=== PATIENT | male | born 2000 | race Caucasian/White ===

== ENCOUNTER 2023-07-05 08:13 | Inpatient (IN) ==
--- NOTE | 2023-07-05 08:43 | Emergency Department Note ---
Impression & Plan Overdose ADMIT ED Provider Note HPI: History obtained from patient. The patient is a 22-year-old male who presents emergency department after suicide attempt. Patient states that at 7:30 AM today he took 5 separate 300 mg tablets of Wellbutrin in an attempt to kill himself. Patient states he then stopped and told his roommate who brought him to the ER to be assessed. Patient states he does have a history of bipolar disorder with some underlying depression. Patient states that he has previously been admitted for inpatient psychiatric care. On arrival here to the ED the patient is calm and cooperative, he is tachycardic on arrival but otherwise hemodynamically stable. Patient presents voluntarily. He is alert and oriented x3 on arrival, denies any physical complaints. ROS: - Per HPI *Outpatient medications and allergy history reviewed. PE: General: Alert HEENT: Normocephalic, trachea midline Eyes: Extraocular eye movement is intact, no scleral erythema Pulmonary: Clear to auscultation bilaterally, no wheezing Cardio: Regular rate and rhythm GI: Abdomen is soft to palpation : No suprapubic tenderness MSK: No evidence of trauma or malformation of the extremities, no edema Skin: No evidence of rash Neuro: Alert, no focal deficits Psychiatric: Cooperative INDEPENDENT INTERPRETATIONS: awake overnight monitor: (As interpreted by myself): - An order was placed for continuous cardiac monitoring - Patient was noted to be in sinus rhythm with a rate of 95 EKG: (As interpreted by myself): Rate: 98 Rhythm: Normal sinus rhythm Intervals: Within normal limits ST changes: No ST elevation Time: 0843 Interventions provided in ED: -IV fluid bolus Medical Decision Making: Patient presented to the emergency department after overdosing on Wellbutrin. Patient reports that he took 1.5 g of Wellbutrin all at once at 7:30 AM. On arrival here to the ED the patient is alert and oriented, he is in no acute distress. IV was established lab work obtained, I did establish contact with poison control center, case was discussed, given that the patient took extended release Wellbutrin he is not considered medically cleared until at least 12 hours. He is at risk for seizing. EKG reviewed by myself does not show any evidence of interval prolongation or arrhythmia. Recommendations made by poison control for observation and benzodiazepines as needed for any seizure-like activity. Lab work shows no leukocytosis, hemoglobin is normal, platelet count is normal, CMP does not show any critical findings, urinalysis does not show any evidence of infection, Tylenol and salicylate levels are negative. Urine drug screen is otherwise negative, alcohol level is negative. Given prolonged time for medical clearance and risk of seizure, patient will be admitted to the medicine service with plan for psychiatric consultation. Patient is voluntary for inpatient assessment at this time. Case was discussed with the on-call midlevel provider for [facility] provider group, Juanjose Crabtree PA-C, and the patient was placed for admission in stable condition. Consultants/Discussions held with other healthcare providers: -Poison Control Center -Hospitalist service [facility], Service of Dr. Koo Disposition discussion held by myself with: -Patient Diagnosis: 1. Intentional drug overdose, acute 2. Wellbutrin overdose with high risk of seizure, acute 3. Suicide attempt, acute Disposition: Admission Ray Wesley DO Emergency Medicine Past Med/Surg History Surgical History History of tonsillectomy History of wisdom tooth extraction Family History Denies family history of Ovarian cancer Prostate cancer Myocardial infarction Breast cancer Colorectal cancer Social History Smoking Status: Current some day smoker Tobacco Type: E-cigarettes / Vaping Second Hand Exposure: No; Do You Dip or Chew Tobacco: No; Hx Alcohol Use: Yes Hx Substance Use: No Preferred Language: Maldivian Communication Ability: Effective Can Coverer Required: No marital status: Single Current Living Situation: Other Current Living Situation Comment: lives with roommates current occupational status: employed current occupation: banker How many Children do You have: 0 Feels Safe at Home: Yes Childhood Exposure to Second-Hand Smoke: No Diet: regular caffeine: Yes Dental Care, Regularly: Yes Physical Activity Frequency: 1-2 Times per Week Seatbelt Use: always Sunscreen Use: Yes (sometimes) Allergies Allergies Allergy/AdvReac Type Severity Reaction Status Date / Time No Known Allergies Allergy Verified 05/25/23 12:53 Home Meds Previous Rx's Medication Instructions Recorded aripiprazole 5 mg tablet 2.5 mg (1/2 x 5 mg) PO DAILY 05/25/23 bipolar disorder #45 tabs bupropion HCl 300 mg 24 hr tablet, 300 mg PO QAM #90 tabs 05/25/23 extended release Results & Data (ED) Vital Signs Vital Signs - 24 hr 07/05/23 08:24 07/05/23 09:29 07/05/23 09:30 Temperature 36.9 C Temperature Source Temporal Artery Scan Pulse Rate 117 H 105 H Pulse Rate [Apical] Pulse Rhythm Regular Respiratory Rate 20 Respiratory Effort / Characteristics Non-Labored Spontaneous Respiratory Depth Normal Respiratory Pattern Regular Blood Pressure 160/91 H Blood Pressure [Right Arm] Blood Pressure Mean 114 Blood Pressure Mean [Right Arm] Blood Pressure Position Sitting Blood Pressure Position [Right Arm] Pulse Oximetry 98 96 Oxygen Delivery Method Room Air Room Air Sepsis Recent Fever Within 48 Hours No Sepsis New/Unexplained Change in Mental Status No Sepsis Action Taken by Nursing No Action Required 07/05/23 09:30 07/05/23 11:11 Temperature Temperature Source Pulse Rate Pulse Rate [Apical] 94 H 106 H Pulse Rhythm Respiratory Rate 18 18 Respiratory Effort / Characteristics Non-Labored Spontaneous Non-Labored Spontaneous Respiratory Depth Normal Normal Respiratory Pattern Blood Pressure Blood Pressure [Right Arm] 141/96 H 124/89 Blood Pressure Mean Blood Pressure Mean [Right Arm] 111 100 Blood Pressure Position Blood Pressure Position [Right Arm] Sitting Sitting Pulse Oximetry 97 100 Oxygen Delivery Method Room Air Room Air Sepsis Recent Fever Within 48 Hours Sepsis New/Unexplained Change in Mental Status Sepsis Action Taken by Nursing Laboratory Data 07/05/23 09:00 07/05/23 09:00 Lab Results 07/05/23 Range/Units 09:00 WBC 6.54 (4.8-10.8) K/ul RBC 5.38 (4.70-6.10) M/uL Hgb 16.8 (14.0-18.0) g/dl Hct 44.7 (42.0-52.0) % MCV 83.1 (80.0-100.0) fL MCH 31.2 (25.0-34.0) pg MCHC 37.6 H (32.0-36.0) g/dL RDW Std Deviation 36.0 L (36.4-46.3) fL RDW Coeff of Hola 12.0 (11.5-14.5) % Plt Count 285 (130-400) K/uL MPV 8.9 L (9.4-12.4) fL Immature Gran % (Auto) 0.6 % Neut % (Auto) 57.0 % Lymph % (Auto) 31.5 % [place] % (Auto) 8.0 % Eos % (Auto) 2.1 % Baso % (Auto) 0.8 % Neut # (Auto) 3.73 (1.40-6.50) K/uL Lymph # (Auto) 2.06 (1.20-3.40) K/uL [place] # (Auto) 0.52 (0.11-0.59) K/uL Eos # (Auto) 0.14 (0.00-0.50) K/uL Baso # (Auto) 0.05 (0.00-0.20) K/uL Immature Gran # (Auto) 0.04 (0.01-0.20) K/uL Sodium 136 (136-145) mmol/L Potassium 4.0 (3.5-5.1) mmol/L Chloride 102 (98-107) mmol/L Carbon Dioxide 24 (21-32) mmol/L Anion Gap 10 (3-11) BUN 11 (6-23) mg/dl Creatinine 0.76 (0.6-1.4) mg/dl Est Cr Clr Drug Dosing 190.5 ml/min Est GFR ( Amer) > 150.0 ml/min Est GFR (Non-Af Amer) 129.5 ml/min BUN/Creatinine Ratio 14.5 (10-20) Glucose 94 (70-99(Fasting)) mg/dl Calcium 9.8 (8.6-10.3) mg/dl Total Bilirubin 0.8 (0.2-1.0) mg/dl AST 37 (13-39) U/L ALT 94 H (7-52) U/L Alkaline Phosphatase 52 (34-104) U/L Total Protein 7.8 (6.0-8.3) gm/dl Albumin 4.8 (3.4-5.0) gm/dl Globulin 3.0 (2.5-4.0) gm/dl Albumin/Globulin Ratio 1.6 (0.9-2) TSH 1.729 (0.300-4.500) uIu/ml Urine Color Yellow Urine Appearance Clear (Clear) Urine pH 6.0 (4.5-7.5) Ur Specific [place] 1.009 (1.000-1.030) Urine Protein Trace H (Negative) Urine Glucose (UA) Negative (Negative) Urine Ketones Negative (Negative) Urine Blood Negative (Negative) Urine Nitrite Negative (Negative) Urine Bilirubin Negative (Negative) Urine Urobilinogen Negative (Negative) Ur Leukocyte Esterase Negative (Negative) Urine WBC (Auto) 0 (0-5) /hpf Urine RBC (Auto) 0-4 (0-4) /hpf U Hyaline Cast (Auto) 0 (0-5) /lpf U Epithel Cells (Auto) 0-5 (0-5) /lpf Urine Bacteria (Auto) Negative (Negative) Salicylates < 3.0 L (3.0-30) mg/dl Urine Opiates Screen Neg (Neg) Ur Methadone, Qual Neg (Neg) Acetaminophen < 3 L (10-30) ug/ml Urine Barbiturates Neg (Neg) Ur Phencyclidine (PCP) Neg (Neg) U Amphetamin/Meth Scrn Neg (Neg) MDMA (Ecstasy) Screen Neg (Neg) U Benzodiazepines Scrn Neg (Neg) Ur Cocaine Metabolite Neg (Neg) U Marijuana (THC) Screen Neg (Neg) Ethyl Alcohol mg/dL < 10.0 (<10.0) mg/dl Administered Medications Discontinued Medications Sodium Chloride (Nss) 1,000 mls @ 999 mls/hr IV .Q1H1M IAN Stop: 07/05/23 09:47 Last Infusion: 07/05/23 10:26 Dose: Infused Documented By: Admin: 07/05/23 09:07 Dose: 999 mls/hr Documented By: CC Discharge Plan Visit Data Chief Complaint: Overdose (Intentional) Stated Complaint: OVERDOSE INTENTIONAL ED Provider: Ray Wesley Discharge Problem: Overdose Forms Stand Alone Forms: My [facility], Suicide Prevention Resources Prescriptions Prescriptions: No Action bupropion HCl 300 mg tablet extended release 24 hr 300 mg PO QAM Qty: 90 2RF aripiprazole 5 mg tablet 2.5 mg PO DAILY Qty: 45 2RF Referrals Referrals: Cornelia Mcbride CRNP [Primary Care Provider] - Discharge Problem: Overdose Qualifiers: Encounter type: initial encounter Injury intent: intentional self-harm Q ualified Code(s): T50.902A - Poisoning by unspecified drugs, medicaments and biological substances, intentional self-harm, initial encounter
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
--- OUTSIDE RECORDS SUMMARY | 2023-07-05 08:43 | External Medical Summary | Summary of Care ---
Author Name Unknown Organization [facility] Address [address] [place] [address] Phone [phone] Care Team Providers Care Insurance Appraiser Name Role Phone Tea Rowland MD Primary Care Provider [phone] Encounter Details Date Type Department Care Team Description 03/25/2023 Telephone Psychiatry [place] [address] [place] [address] Dru Woods MD [address] [place] [address] Allergies Active Allergy Reactions Severity Noted Date Comments Pollen 12/09/2021 documented as of this encounter (statuses as of 03/25/2023) Medications Medication Sig Dispensed Refills Start Date End Date Status Fluticasone Propionate 50 MCG/ACT Nasal Suspension (Flonase)Indication s:Acute maxillary sinusitis, recurrence not specified Administer into nostril 1 [place] in the morning. 16 g 0 05/07/2022 Active Sertraline HCl 100 MG Oral Tablet (Zoloft) Take 1 tablet by mouth daily 90 Tablet 1 12/11/2022 Active documented as of this encounter (statuses as of 03/25/2023) Active Problems Problem Noted Date MDD (major depressive disorder), recurre nt episode 04/20/2022 NOREEN (generalized anxiety disorder) 04/20 Migraine with aura and without status mi grainosus, not intractable 08/25/2021 Elevated blood pressure reading without diagnosis of hypertension 08/25/2021 History of 2019 novel coronavirus diseas e (COVID-19) 08/13/2021 Overview: Tested Positive 07/23/21 Anxiety and depression 06/24/2021 documented as of this encounter (statuses as of 03/25/2023) Immunizations Name Administration Dates Next Due COVID-19 mRNA, LNP-s, No Pre serve, 2-Dose Series (Pfizer) 09/08/2021,11/24/2020,11/02/2020 Hepatitis B, 0-19 yrs 04/20/2001,2000,08/02 IPV - Polio Virus Vaccine (Inact) 2004,02/23/2001,2000,10/26 MMR - Measles/Mumps/Rubella Vaccine 02/25/2005,0 10/26/2001 Meningococcal Conjugate Vacc ine (Menactra/Menveo) 03/18/2018,10/12/2013 Seasonal Influenza, Quadriva lent, No Preserve, IM 04/21/2022 TDAP (age 11 and older)(Adacel) 04/14/2012 Varicella Vaccine (Chicken Pox) 03/26/2009,10/26 documented as of this encounter Social History Tobacco Use Types Packs/Day Years Used Date Smoking Tobacco: Never Smokeless Tobacco: Never Alcohol Use Standard Drinks/Week Comments Yes 0 (1 standard drink = 0.6 oz pur e alcohol) Rare Sex Assigned at Date Recorded Male 04/09/2021 11:29 AM EDT Job Start Date Occupation Industry Not on file Not on file Not on file documented as of this encounter Miscellaneous Notes * Telephone Encounter - Dru Woods MD - 03/25/2023 1:55 PM EDT psych record request Dru Woods Jaime L. ThanksBo. I believe these should be the dates of a selection of records in [place] to send - 05/08/21 05/29/21 10/09/21 05/13/22 07/15/22 11/19/22 12/10/22 Thanks, Dru Woods MD -[facility] [phone] -[facility] [phone] "Everything will be all right in the end.?If it's not all right, then it isn't the end."?~ Author Unknown Please remember that email is not confidential and may not always be read in a timely fashion. Thisis especially important in an emergency. If you more urgent attention or need to communicate about matters other than scheduling, please use the phone numbers above to contact us. Carlos Beltran, Dru montgomery, Dr. Woods! [facility] has received the attached FLORENTINO and Record Request for a recent [employer] Grad. Do you want to take a quick look at his file and tell me what you would like to send. Thanks! Carlos Beltran she/her Warp Preparer [facility] [phone], Option 1 for my desk [phone], Option 2 for student mental health emergencies and teletherapy services with [facility] BE IMPOSSIBLE TO IGNORE.? documented in this encounter Plan of Treatment Health Maintenance Due Date Last Done Comments GARDASIL-HPV IMMUNIZATION SERIES (1 - Male 2-dose series) 2011 Depression Screening, Annual for Pts 12 and Over 2012 HIV Screening 2015 Hepatitis C Screening 2018 COVID-19 Vaccine (4 - Pfizer series) 11/03/2021 09/08/2021, 11/24/2020, 11/02/2020 DTaP,Tdap,and Td Vaccines (2 - Td or Tdap) 04/14/2022 04/14/2012 Influenza Vaccine (FLU shot) (#1) 2023 04/21/2022, 06/18/2021 Hepatitis B Completed 04/20/2001, 2000, 2000 MENINGOCOCCAL (MENACTRA/MENVEO) Completed 03/18/2018, 10/12/2013 Pneumococcal Vaccine: Pediatrics (0 to 5 Years) and At-Risk Patients (6 to 64 Years) Aged Out No longer eligible b ased on patient's age to complete this topic documented as of this encounter Medical Devices Not on filedocumented as of this encounter Advance Directives Latest Code Status on File Code Status Date Activated Date Inactivated Comments Full Code 04/16/2022 8:10 PM 04/20/2022 3:53 PM This order reflects the patients wishes and were consensually agreed upon. Question Answer Comments Discussion of Advance Directives occurred with: Not Discussed due to patient's condition Care Teams Insurance Appraiser Relationship Specialty Start Date End Date Tea Rowland MD [address] [place] [address] [place] [id number] PCP - General Internal Medicine 11/11/20 documented as of this encounter
[2023-07-05] MEDS ORDERED: SODIUM CHLORIDE 0.9% 1,000 ML IV SCH (08:47)
[2023-07-05 09:27] LABS: Appearance Urine Clear (Clear); Bacteria Urine Automated Negative (Negative); Bilirubin Urine Negative (Negative); Blood Urine Negative (Negative); Cast Urine Automated 0 /lpf (0-5); Color Urine Yellow; Epithelial Cell Urine Auto 0-5 /lpf (0-5); Glucose Urine UA Negative (Negative); Ketones Urine Negative (Negative); Leukocyte Esterase Urine Negative (Negative); Nitrite Urine Negative (Negative); Protein Urine Trace (Negative); RBC Urine Automated 0-4 /hpf (0-4); Specific Gravity Urine 1.009 (1.000-1.030); Urobilinogen Urine Negative (Negative); WBC Urine Automated 0 /hpf (0-5)
[2023-07-05 09:37] LABS: Basophils # (auto) 0.05 K/uL (0.00-0.20); Basophils % (auto) 0.8 %; Eosinophils # (auto) 0.14 K/uL (0.00-0.50); Eosinophils % (auto) 2.1 %; Hematocrit (blood only) 44.7 % (42.0-52.0); Hemoglobin 16.8 g/dl (14.0-18.0); Immature Granulocytes # (auto) 0.04 K/uL (0.01-0.20); Immature Granulocytes % (auto) 0.6 %; Lymphocytes # (auto) 2.06 K/uL (1.20-3.40); Lymphocytes % (auto) 31.5 %; Mean Corpuscular Hemoglobin 31.2 pg (25.0-34.0); Mean Corpuscular Hgb Conc 37.6 g/dL (32.0-36.0); Mean Corpuscular Volume 83.1 fL (80.0-100.0); Mean Platelet Volume 8.9 fL (9.4-12.4); Monocytes # (auto) 0.52 K/uL (0.11-0.59); Neutrophils # (auto) 3.73 K/uL (1.40-6.50); Platelet Count 285 K/uL (130-400); Red Blood Count 5.38 M/uL (4.70-6.10); White Blood Count 6.54 K/ul (4.8-10.8)
[2023-07-05 09:51] LABS: Amphetamines+Metham, Urine Neg (Neg); Barbiturates, Urine Neg (Neg); Benzodiazepine, Urine Neg (Neg); Cocaine, Urine Neg (Neg); MDMA (Ecstacy), Urine Neg (Neg); Marijuana, Urine Neg (Neg); Methadone, Urine Neg (Neg); Opiate, Urine Neg (Neg); Phencyclidine, Urine Neg (Neg)
[2023-07-05 10:00] LABS: Acetaminophen < 3 ug/ml (10-30); Salicylate < 3.0 mg/dl (3.0-30)
[2023-07-05 10:05] LABS: Alanine Aminotransferase 94 U/L (7-52); Albumin Globulin Ratio 1.6 (0.9-2); Albumin Level 4.8 gm/dl (3.4-5.0); Alkaline Phosphatase 52 U/L (34-104); Anion Gap 10 (3-11); Aspartate Aminotransferase 37 U/L (13-39); BUN Creatinine Ratio 14.5 (10-20); Bilirubin,Total 0.8 mg/dl (0.2-1.0); Blood Urea Nitrogen 11 mg/dl (6-23); Calcium 9.8 mg/dl (8.6-10.3); Carbon Dioxide 24 mmol/L (21-32); Chloride 102 mmol/L (98-107); Creatinine Clr Calc Pharmacy 190.5 ml/min; Est GFR (African American) > 150.0 ml/min; Est GFR (Non-African American) 129.5 ml/min; Glucose 94 mg/dl (70-99(Fasting)); Sodium 136 mmol/L (136-145); Total Protein 7.8 gm/dl (6.0-8.3)
[2023-07-05 10:19] LABS: Thyroid Stimulating Hormone 1.729 uIu/ml (0.300-4.500)
--- NOTE | 2023-07-05 10:20 | History & Physical Report ---
Date of Service July 05, 2023 Assessment & Plan (1) Drug overdose, intentional: Plan: Suicide attempt; patient took 1.5 g of Wellbutrin at 0730 on 07/05 Hx of prior inpatient psych treatment x 2, with the last being January 2023 due to depression/SI; this is his first official attempt Tox screen negative for acetaminophen, salicylates, alcohol Patient denies any other ingestions and is A&Ox3 at time of admission Electrolytes WNL EKG revealed NSR at 98 bpm; QTc 413 Repeat EKG planned at q6h to recheck QTc Per poison control, plan is to monitor for seizure precautions for at least 12h Continuous telemetry monitoring Lorazepam 2 mg IV q5m x 2 max doses as needed for seizure activity lasting >3min Patient denies hx of seizures Psych consulted 1:1 observation for now Safe tray A.m. CBC, BMP (2) Bipolar 2 disorder: Plan: Hold aripiprazole (3) Depression: Plan: Hold bupropion (4) Anxiety: Plan: Hold bupropion Plan Disposition: Admit to PCU telemetry Full code Regular diet, safe tray VTE PPx: Will defer for now History of Present Illness Chief Complaint: Overdose (intentional) Primary Care Provider: PATTIE Morin Dwight is a 22-year-old male with PMH of anxiety, depression, and bipolar disorder type 2. He presented for a suicide attempt after taking 1.5 g of Wellbutrin the morning of 07/05 at 0730. The patient reports this was his first suicide attempt, which was triggered by ongoing feelings of depression. He endorses ongoing depression since his last inpatient hospital stay in January 2023 at [facility]. Hx of 2 inpatient psychiatric stays for depression and suicidal ideation (the first was at [facility] in May 2022; second was at [facility] in January 2023). Patient reports he would prefer outpatient psych if possible. He denies any other ingestions the morning of 07/05, cutting, or HI. He further denies alcohol use, tobacco use, or recreational drug use. He endorses vaping. Patient recently moved to [place] in March 2023 for a new job, and he currently lives with his roommate (Андрей) who is at the bedside at time of admission. He denies a history of seizures. He reports he has no access to firearms at home. He denies any recent head trauma or injuries. He did not take his aripiprazole this morning, and reports that he does not take it regularly due to unwanted side effects of sedation. Mild tachycardia at 106 bpm at time of admission; vitals otherwise stable. ED course: NSS 1000mL ROS: Patient endorses dizziness, lightheadedness, nausea, abdominal cramping, chest palpitations the morning of 07/05 (which have resolved). Patient denies fever, confusion, headache, chest pain, SOB, vomiting, diarrhea, constipation, urinary s/s, or numbness or tingling down the arms/legs. Allergies Allergy/AdvReac Type Severity Reaction Status Date / Time No Known Allergies Allergy Verified 05/25/23 12:53 Home Medications Medication Instructions Recorded Confirmed Type aripiprazole 5 mg tablet 2.5 mg (1/2 x 5 mg) PO DAILY 05/25/23 07/05/23 Rx bipolar disorder #45 tabs bupropion HCl 300 mg 24 hr tablet, 300 mg PO QAM #90 tabs 05/25/23 07/05/23 Rx extended release Past Med/Surg History Surgical History History of tonsillectomy History of wisdom tooth extraction Family History Denies family history of Ovarian cancer Prostate cancer Myocardial infarction Breast cancer Colorectal cancer Social History Smoking Status: Current some day smoker Tobacco Type: E-cigarettes / Vaping Second Hand Exposure: No; Do You Dip or Chew Tobacco: No; Hx Alcohol Use: Yes Hx Substance Use: No Preferred Language: Turkish Communication Ability: Effective Manager Night Required: No Beliefs That Will Affect Care: None marital status: Single Current Living Situation: Other Current Living Situation Comment: patient lives with 2 roomates current occupational status: employed current occupation: banker How many Children do You have: 0 Feels Safe at Home: Yes Safety Concerns: Feels Safe At This Time Childhood Exposure to Second-Hand Smoke: No Diet: regular caffeine: Yes Dental Care, Regularly: Yes Physical Activity Frequency: 1-2 Times per Week Seatbelt Use: always Sunscreen Use: Yes (sometimes) Review of Systems Review of Systems: See HPI above Physical Exam Physical Exam: General: no acute distress; pleasant affect; non-toxic appearing; well- nourished; cooperative HEENT: normocephalic, atraumatic; no scleral icterus; PERRLA w/ EOMs intact; moist mucus membrane; vision and hearing grossly intact Neck: supple; no lymphadenopathy; trachea midline; no pain with shrugging or turning head Skin: warm, dry without signs of tenting; no cyanosis; no rashes, bruising, lesions, or erythema noted CV: chest wall NTP; RRR; S1/S2 normal; no murmurs/rubs/gallops; pulses intact and symmetric at radial, DP, and PT Lungs: no acute respiratory distress; symmetrical chest wall expansion; clear breath sounds across all lung nugent w/o adventitious sounds; no wheezing ABD: Soft, NTP; BS present; no rebound/guarding; no ascites; no distention MSK: no tics or fasciculations; no edema noted in the LEs b/l; patient demonstrates the ability to wiggle toes when asked Neuro: A&Ox3; normal mood and affect; fluent speech; no focal deficits; sensation grossly intact in the LEs B/L Results & Data Results & Data Vital Signs (Past 12 Hours) Vital Signs Temp Pulse Pulse Resp BP BP Pulse Ox 07/05/23 09:30 94 H 18 141/96 H 97 07/05/23 09:30 96 07/05/23 09:29 105 H 07/05/23 08:24 36.9 C 117 H 20 160/91 H 98 O2 Del Method 07/05/23 09:30 Room Air 07/05/23 09:30 Room Air 07/05/23 09:29 07/05/23 08:24 Room Air Laboratory Results Abnormal lab results 07/05/23 Range/Units 09:00 MCHC 37.6 H (32.0-36.0) g/dL RDW Std Deviation 36.0 L (36.4-46.3) fL MPV 8.9 L (9.4-12.4) fL ALT 94 H (7-52) U/L Urine Protein Trace H (Negative) Salicylates < 3.0 L (3.0-30) mg/dl Acetaminophen < 3 L (10-30) ug/ml Code Status & VTE Plan Code Status Full code VTE Prophylaxis Plan VTE Prophylaxis will be ordered: No Supervising Physician Co-Signing Physician Notes I personally saw and examined the patient. I independently reviewed the labs, EKG, imaging, problem list, medication list, past medical history and family history. I verified all cassidy points and agree with Juanjose Crabtree PA-C with the following exceptions and/or additions: 22 year old with intentional overdose of Wellbutrin (took 5 pills). Mild nausea but patient reports otherwise no current symptoms. Poison control contacted by PA for plan. O/E A&Ox3, HS RRR, no murmurs, Chest CTAB, Abdo SNT, no hyperreflexia, moving all 4 extremities A/P Intentional overdose - monitor over night for 24 hours. plan per poison control as above. consult psychiatry for possible need for inpatient admission once medically cleared. PG Care Time/CCT Total # of Minutes Spent Total Time Spent with Patient: Total time spent is greater than 50% in coordination of care (as documented) at patient's floor/unit and/or counseling patient: Coding [place] [address] INT INP/OBS CARE 2/55MIN Patient Type Established Medical Decision Making Low Complexity Diagnoses Drug overdose, intentional T50.902A Bipolar 2 disorder F31.81 Depression F32.A Anxiety F41.9
[2023-07-05] MEDS ORDERED: ONDANSETRON INJ 2 MG/ML 2 ML VIAL IV PRN (11:38)
--- NOTE | 2023-07-05 12:50 | Electrocardiogram Report ---
Test Reason : Blood Pressure : / mmHG Vent. Rate : 098 BPM Atrial Rate : 098 BPM P-R Int : 130 ms QRS Dur : 092 ms QT Int : 324 ms P-R-T Axes : 038 001 017 degrees QTc Int : 413 ms Normal sinus rhythm Minimal voltage criteria for LVH, may be normal variant ( R in aVL ) Borderline ECG No previous ECGs available Confirmed by Pancho Kuhn ([id number]) on 07/05/2023 12:50:04 PM Referred By: Confirmed By:Pancho Kuhn
[2023-07-05] MEDS ORDERED: LORazepam 2 MG in SYRINGE 1 ML IV PRN (13:43)
[2023-07-05] MEDS ORDERED: MELATONIN 3 MG TAB PO ONE (21:45)
[2023-07-06 08:14] LABS: Basophils # (auto) 0.04 K/uL (0.00-0.20); Basophils % (auto) 0.6 %; Eosinophils # (auto) 0.12 K/uL (0.00-0.50); Eosinophils % (auto) 1.8 %; Hematocrit (blood only) 42.9 % (42.0-52.0); Hemoglobin 15.4 g/dl (14.0-18.0); Immature Granulocytes # (auto) 0.03 K/uL (0.01-0.20); Immature Granulocytes % (auto) 0.4 %; Lymphocytes # (auto) 2.21 K/uL (1.20-3.40); Lymphocytes % (auto) 32.3 %; Mean Corpuscular Hemoglobin 30.7 pg (25.0-34.0); Mean Corpuscular Hgb Conc 35.9 g/dL (32.0-36.0); Mean Corpuscular Volume 85.5 fL (80.0-100.0); Mean Platelet Volume 8.7 fL (9.4-12.4); Monocytes # (auto) 0.62 K/uL (0.11-0.59); Monocytes % (auto) 9.1 %; Neutrophils # (auto) 3.82 K/uL (1.40-6.50); Neutrophils % (auto) 55.8 %; Platelet Count 247 K/uL (130-400); RDW Coefficient of Variation 12.1 % (11.5-14.5); RDW Standard Deviation 37.5 fL (36.4-46.3); Red Blood Count 5.02 M/uL (4.70-6.10); White Blood Count 6.84 K/ul (4.8-10.8)
--- NOTE | 2023-07-06 08:30 | Psychiatric Consultation ---
Date of Consultation July 06, 2023 Impression / Recommendations Impression 22 yo male s/p Wellbutrin OD, 2 prior inpatient stays, is insistent would prefer outpatient treatment though mainly lists concerns about missing work/PTO. Reviewed with patient that he is not yet medically cleared and that will reach out to family/roommate re: possible safety planning. Mother seemingly confirms his reports that inpatient was not effective. Any bipolar hx is not particularly clear at this time, no sheyla on exam, can't exclude activation on Wellbutrin particularly given impulsive nature. (1) Drug overdose, intentional: (2) Anxiety: Plan patient understands that recommendation is for inpatient mental health treatment when medically cleared but involuntary stay could be counter therapeutic and create additional stressors (financial, job). Unclear at this time if there is a viable safety plan (support in securing meds, monitoring with assistance of family/roommate). Patient is willing to consider referral to [facility]. At this point there is no safety plan or aftercare in place so he is NOT allowed to leave the hospital AMA and if attempts to leave before cleared/referred would need to pursue 302 warrant. CPT Code Overall, I spent a total of 64 minutes with this case, including review of chart, direct evaluation of the patient, counseling the patient, coordination with nursing, risk assessment, and documentation. Psych History Identifying Data 22 yo male lives locally with roommates, presented to ED 07/05/23 after OD. Chief Complaint "The minute I took the pills I knew it was a mistake, I didn't plan it. Inpatient really didn't help me and I'd like to know options". History of Present Illness Patient was anxious on approach, HR on monitor increased to 130s. He stated he didn't sleep well and recently had been having migraines and some GI issues. 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 He feels main trigger was homesickness as his family lives in [facility] and he missed a libertarian for his mom's birthday. Otherwise describes good relationship with roommates. He does have some financial problems due to credit card bills, student loans, and an outstanding bill for a previous inpatient stay. He reconfirmed 2 previous stays, no prior attempts. States he has been taking Wellbutrin for approximately 2 months. Recently filled a 90 day supply, took approximately 1.5 gm per hospitalist. Patient has no hx of seizure. Reports a hx of bipolar diagnosis but had difficulty relating any possible manic symptoms other than overspending. Mother has since told liaison unsure on med compliance. Abilify and Wellbutrin held. as per ED CM: Patient seen for initial consult, alert and oriented x 4, pleasant and cooperative with assessment, patient states he is still feeling a little nauseas from the overdose but is denying SI currently - he states this was his first actual suicide attempt and it wad done impulsively "the moment I took the meds I felt better and did not understand why I did it", denies acute stressors but was just feeling particularly depressed that day and decided to take the medications, does have a formal diagnosis of bipolar type 2 and was at [facility] January 2023 and [place] May 2022 for major depression and SI, he moved to [place] from [facility] for a job this summer at a local [employer] in [place] and has two roommates he cites as main supports - he also cites family as supportive but states they are a little ways away now, denies drug or alcohol use, currently his medications are prescribed through his PCP at [facility] - is taking 2.5mg abilify daily but feels this medication is not helpful and the previous dosage of 5mg had too many negative side effects - also takes 300mg wellbutrin XL daily (and has trialed zoloft in the past), patient is interested in getting outpatient psychiatry and therapy setup and would not to get inpatient treatment for this overdose attempt as past experiences he found "stressful and unhelpful", patient also acknowledges that he is willing to do whatever the team ultimately recommends and states he has no desire to leave until cleared by both the medical team as well as the psychiatric team PATIENT MAY NOT LEAVE AMA CONTACT PSYCH LIAISON EXT. [id number] WARRANT WILL BE PURSUED , states he would inform staff if he did begin to have thoughts of suicide while on the hospital floor and denies other questions at this time. Psychiatrist to round tomorrow. Allergies Allergy/AdvReac Type Severity Reaction Status Date / Time No Known Allergies Allergy Verified 05/25/23 12:53 Home Medications Medication Instructions Recorded Confirmed Type aripiprazole 5 mg tablet 2.5 mg (1/2 x 5 mg) PO DAILY 05/25/23 07/05/23 Rx bipolar disorder #45 tabs bupropion HCl 300 mg 24 hr tablet, 300 mg PO QAM #90 tabs 05/25/23 07/05/23 Rx extended release Patient History Surgical History History of wisdom tooth extraction at age of 15 History of tonsillectomy at age of 14 Family History Denies family history of Ovarian cancer Prostate cancer Myocardial infarction Breast cancer Colorectal cancer Social History Smoking Status: Current some day smoker Tobacco Type: E-cigarettes / Vaping Second Hand Exposure: No; Do You Dip or Chew Tobacco: No; Hx Alcohol Use: Yes Hx Substance Use: No Preferred Language: Kenyan Communication Ability: Effective Domestic Freight Forwarder Required: No Beliefs That Will Affect Care: None marital status: Single Current Living Situation: Other Current Living Situation Comment: patient lives with 2 roomates current occupational status: employed current occupation: Profiteroer How many Children do You have: 0 Feels Safe at Home: Yes Safety Concerns: Feels Safe At This Time Childhood Exposure to Second-Hand Smoke: No Diet: regular caffeine: Yes Dental Care, Regularly: Yes Physical Activity Frequency: 1-2 Times per Week Seatbelt Use: always Sunscreen Use: Yes (sometimes) Assistive Devices: None Physical Exam Psychiatric: Orientation: alert and oriented x 3 Apperance: appropriately dressed and appropriately groomed Eye Contact: good eye contact Motor Behavior: no abnormal motor movements Speech: normal rate/rhythm/volume of speech Affect: + anxious affect Mood: + depressed mood Thought Process: goal directed thought process Thought Content: reality based without delusions Suicidal Thoughts: denies suicidal thoughts Homicidal Thoughts: denies homicidal thoughts Hallucinations: no auditory hallucinations and no visual hallucinations Cognition: attention grossly intact and language grossly intact Estimated Intelligence: consistent with education level Vital Signs (Past 24 Hours): Last Vital Signs Temp 36.9 C 07/05/23 08:24 Pulse 100 H 07/06/23 08:00 Resp 19 07/06/23 08:00 BP 166/101 H 07/06/23 08:00 Pulse Ox 98 07/06/23 08:00 O2 Del Method Room Air 07/06/23 06:00 Review of Systems All systems reviewed & are unremarkable except as noted in HPI & below Results & Data (PSY) Laboratory Results Labs 07/05/23 07/06/23 09:00 07:56 WBC 6.54 6.84 RBC 5.38 5.02 Hgb 16.8 15.4 Hct 44.7 42.9 MCV 83.1 85.5 MCH 31.2 30.7 MCHC 37.6 H 35.9 RDW Std Deviation 36.0 L 37.5 RDW Coeff of Hola 12.0 12.1 Plt Count 285 247 MPV 8.9 L 8.7 L Immature Gran % (Auto) 0.6 0.4 Neut % (Auto) 57.0 55.8 Lymph % (Auto) 31.5 32.3 [place] % (Auto) 8.0 9.1 Eos % (Auto) 2.1 1.8 Baso % (Auto) 0.8 0.6 Neut # (Auto) 3.73 3.82 Lymph # (Auto) 2.06 2.21 [place] # (Auto) 0.52 0.62 H Eos # (Auto) 0.14 0.12 Baso # (Auto) 0.05 0.04 Immature Gran # (Auto) 0.04 0.03 Sodium 136 137 Potassium 4.0 4.5 Chloride 102 101 Carbon Dioxide 24 28 Anion Gap 10 8 BUN 11 17 Creatinine 0.76 0.85 Est Cr Clr Drug Dosing 190.5 170.4 Est GFR ( Amer) > 150.0 143.4 Est GFR (Non-Af Amer) 129.5 123.7 BUN/Creatinine Ratio 14.5 20.0 Glucose 94 103 H Calcium 9.8 9.8 Total Bilirubin 0.8 AST 37 ALT 94 H Alkaline Phosphatase 52 Total Protein 7.8 Albumin 4.8 Globulin 3.0 Albumin/Globulin Ratio 1.6 TSH 1.729 Urine Color Yellow Urine Appearance Clear Urine pH 6.0 Ur Specific [place] 1.009 Urine Protein Trace H Urine Glucose (UA) Negative Urine Ketones Negative Urine Blood Negative Urine Nitrite Negative Urine Bilirubin Negative Urine Urobilinogen Negative Ur Leukocyte Esterase Negative Urine WBC (Auto) 0 Urine RBC (Auto) 0-4 U Hyaline Cast (Auto) 0 U Epithel Cells (Auto) 0-5 Urine Bacteria (Auto) Negative Salicylates < 3.0 L Urine Opiates Screen Neg Ur Methadone, Qual Neg Acetaminophen < 3 L Urine Barbiturates Neg Ur Phencyclidine (PCP) Neg U Amphetamin/Meth Scrn Neg MDMA (Ecstasy) Screen Neg U Benzodiazepines Scrn Neg Ur Cocaine Metabolite Neg U Marijuana (THC) Screen Neg Ethyl Alcohol mg/dL < 10.0 Diagnostic Findings EKG on file Coding Level of Care Code 12877 U Intl Hosp Care Lvl 2 Diagnoses Drug overdose, intentional T50.902A Anxiety F41.9
[2023-07-06 08:33] LABS: Calcium 9.8 mg/dl (8.6-10.3); Creatinine Clr Calc Pharmacy 170.4 ml/min; Est GFR (African American) 143.4 ml/min; Est GFR (Non-African American) 123.7 ml/min; Potassium 4.5 mmol/L (3.5-5.1)
--- NOTE | 2023-07-06 13:31 | Electrocardiogram Report ---
Test Reason : Blood Pressure : / mmHG Vent. Rate : 116 BPM Atrial Rate : 116 BPM P-R Int : 136 ms QRS Dur : 088 ms QT Int : 308 ms P-R-T Axes : 040 -07 027 degrees QTc Int : 428 ms Sinus tachycardia Minimal voltage criteria for LVH, may be normal variant ( R in aVL ) Poor R wave progression, consider anterior ID vs. lead placement vs. LVH Abnormal ECG When compared with ECG of 05-JUL-2023 08:43, No significant change was found Confirmed by Pancho Kuhn ([id number]) on 07/06/2023 1:31:11 PM Referred By: REFERRED SELF Confirmed By:Pancho Kuhn
[2023-07-06 15:27] VITALS: TEMP 98.1
--- NOTE | 2023-07-06 18:45 | Hospitalist Progress Note ---
Date of Service July 06, 2023 Assessment & Plan (1) Drug overdose, intentional: Plan: Suicide attempt; patient took 1.5 g of Wellbutrin at 0730 on 07/05 Hx of prior inpatient psych treatment x 2, with the last being January 2023 due to depression/SI; this is his first official attempt Tox screen negative for acetaminophen, salicylates, alcohol Patient denies any other ingestions and is A&Ox3 at time of admission Electrolytes WNL EKG revealed NSR at 98 bpm; QTc 413 Repeat EKG planned at q6h to recheck QTc Per poison control, plan is to monitor for seizure precautions for at least 12h Continuous telemetry monitoring Patient is cleared from medical standpoint, wait for final psychiatry. Possible transfer to inpatient psych 1:1 observation for now Safe tray A.m. CBC, BMP (2) Bipolar 2 disorder: Plan: Hold aripiprazole (3) Depression: Plan: Hold bupropion (4) Anxiety: Plan: Hold bupropion Plan Disposition: Admit to PCU telemetry Full code Regular diet, safe tray VTE PPx: Will defer for now Admission and Anticipated Discharge Date Admission Date: July 05, 2023 Subjective Spoke to the patient denied to be suicidal anymore, I asked him about the motivation for intentional medical overdose he stated that he suffers from bipolar disorder and he was in a depressive mood but not anymore Review of Systems Review of Systems: See HPI above Physical Exam Physical Exam: General: no acute distress; pleasant affect; non-toxic appearing; well- nourished; cooperative HEENT: normocephalic, atraumatic; no scleral icterus; PERRLA w/ EOMs intact; moist mucus membrane; vision and hearing grossly intact Neck: supple; no lymphadenopathy; trachea midline; no pain with shrugging or turning head Skin: warm, dry without signs of tenting; no cyanosis; no rashes, bruising, lesions, or erythema noted CV: chest wall NTP; RRR; S1/S2 normal; no murmurs/rubs/gallops; pulses intact and symmetric at radial, DP, and PT Lungs: no acute respiratory distress; symmetrical chest wall expansion; clear breath sounds across all lung nugent w/o adventitious sounds; no wheezing ABD: Soft, NTP; BS present; no rebound/guarding; no ascites; no distention MSK: no tics or fasciculations; no edema noted in the LEs b/l; patient demonstrates the ability to wiggle toes when asked Neuro: A&Ox3; normal mood and affect; fluent speech; no focal deficits; sensation grossly intact in the LEs B/L Psychiatric: Orientation: alert and oriented x 3 Apperance: appropriately dressed and appropriately groomed Eye Contact: good eye contact Motor Behavior: no abnormal motor movements Speech: normal rate/rhythm/volume of speech Affect: + anxious affect Mood: + depressed mood Thought Process: goal directed thought process Thought Content: reality based without delusions Suicidal Thoughts: denies suicidal thoughts Homicidal Thoughts: denies homicidal thoughts Hallucinations: no auditory hallucinations and no visual hallucinations Cognition: attention grossly intact and language grossly intact Estimated Intelligence: consistent with education level Results & Data Results & Data Vital Signs (Past 12 Hours) Vital Signs Temp Pulse Pulse Resp BP BP Pulse Ox 07/06/23 16:00 95/76 L 07/06/23 16:00 101 H 19 97 07/06/23 15:54 96 H 07/06/23 15:26 36.7 C 07/06/23 14:00 110/70 07/06/23 14:00 80 20 96 07/06/23 12:34 85 18 133/82 95 07/06/23 12:00 97 H 21 95 07/06/23 12:00 133/82 07/06/23 10:00 125/75 07/06/23 10:00 78 24 95 07/06/23 08:41 90 22 114/89 96 07/06/23 08:00 100 H 19 166/101 H 98 07/06/23 06:57 79 O2 Del Method 07/06/23 16:00 07/06/23 16:00 07/06/23 15:54 07/06/23 15:26 07/06/23 14:00 07/06/23 14:00 07/06/23 12:34 Room Air 07/06/23 12:00 07/06/23 12:00 07/06/23 10:00 07/06/23 10:00 07/06/23 08:41 07/06/23 08:00 07/06/23 06:57 PG Care Time/CCT Total # of Minutes Spent Total Time Spent with Patient: Total time spent is greater than 50% in coordination of care (as documented) at patient's floor/unit and/or counseling patient: Coding Level of Care Code 70164 SUB INP/OBS CARE 2MIN Diagnoses Drug overdose, intentional T50.902A Bipolar 2 disorder F31.81 Depression F32.A Anxiety F41.9
[2023-07-06 22:13] VITALS: RESP 18
[2023-07-07 08:31] VITALS: O2SAT 95
[2023-07-07 11:13] VITALS: BP 118/74; PULSE 91
--- NOTE | 2023-07-07 12:12 | Communication Note ---
Date of Service: July 07, 2023 Patient remains cooperative and engaged in aftercare planning, continues to deny SI. His family and roommate were contacted re: support/safety planning and confirmed that meds can be secured. I'd advise patient to check with his outpatient prescriber before resuming medications, particularly Wellbutrin as were held here at hospital. Intake with [facility] for therapy and med management later today with written safety plan reviewed with liaison.
--- NOTE | 2023-07-07 19:21 | Discharge Summary ---
Date of Service July 07, 2023 Admission HPI Per Admitting Provider Dwight is a 22-year-old male with PMH of anxiety, depression, and bipolar disorder type 2. He presented for a suicide attempt after taking 1.5 g of Wellbutrin the morning of 07/05 at 0730. The patient reports this was his first suicide attempt, which was triggered by ongoing feelings of depression. He endorses ongoing depression since his last inpatient hospital stay in January 2023 at [facility]. Hx of 2 inpatient psychiatric stays for depression and suicidal ideation (the first was at [facility] in May 2022; second was at [facility] in January 2023). Patient reports he would prefer outpatient psych if possible. He denies any other ingestions the morning of 07/05, cutting, or HI. He further denies alcohol use, tobacco use, or recreational drug use. He endorses vaping. Patient recently moved to [place] in March 2023 for a new job, and he currently lives with his roommate (Андрей) who is at the bedside at time of admission. He denies a history of seizures. He reports he h as no access to firearms at home. He denies any recent head trauma or injuries. He did not take his aripiprazole this morning, and reports that he does not take it regularly due to unwanted side effects of sedation. Mild tachycardia at 106 bpm at time of admission; vitals otherwise stable. ED course: NSS 1000mL ROS: Patient endorses dizziness, lightheadedness, nausea, abdominal cramping, chest palpitations the morning of 07/05 (which have resolved). Patient denies fever, confusion, headache, chest pain, SOB, vomiting, diarrhea, constipation, urinary s/s, or numbness or tingling down the arms/legs. Principal Diagnosis Suicidal attempt with medication overdose Discharge Exam General: no acute distress; pleasant affect; non-toxic appearing; well- nourished; cooperative HEENT: normocephalic, atraumatic; no scleral icterus; PERRLA w/ EOMs intact; moist mucus membrane; vision and hearing grossly intact Neck: supple; no lymphadenopathy; trachea midline; no pain with shrugging or turning head Skin: warm, dry without signs of tenting; no cyanosis; no rashes, bruising, lesions, or erythema noted CV: chest wall NTP; RRR; S1/S2 normal; no murmurs/rubs/gallops; pulses intact and symmetric at radial, DP, and PT Lungs: no acute respiratory distress; symmetrical chest wall expansion; clear b reath sounds across all lung nugent w/o adventitious sounds; no wheezing ABD: Soft, NTP; BS present; no rebound/guarding; no ascites; no distention MSK: no tics or fasciculations; no edema noted in the LEs b/l; patient demonstrates the ability to wiggle toes when asked Neuro: A&Ox3; normal mood and affect; fluent speech; no focal deficits; sensation grossly intact in the LEs B/L Psychiatric Orientation: alert and oriented x 3 Apperance: appropriately dressed and appropriately groomed Eye Contact: good eye contact Motor Behavior: no abnormal motor movements Speech: normal rate/rhythm/volume of speech Affect: + anxious affect Mood: + depressed mood Thought Process: goal directed thought process Thought Content: reality based without delusions Suicidal Thoughts: denies suicidal thoughts Homicidal Thoughts: denies homicidal thoughts Hallucinations: no auditory hallucinations and no visual hallucinations Cognition: attention grossly intact and language grossly intact Estimated Intelligence: consistent with education level Discharge Data Allergies Allergy/AdvReac Type Severity Reaction Status Date / Time No Known Allergies Allergy Verified 05/25/23 12:53 Consultations 07/05/23 10:11 ED Decision to Admit Stat 07/05/23 13:43 Consult Psychiatry Routine 07/05/23 22:46 Consult Behavioral Health Liaison Routine Hospital Course (1) Drug overdose, intentional: Suicide attempt; patient took 1.5 g of Wellbutrin at 0730 on 07/05 Hx of prior inpatient psych treatment x 2, with the last being January 2023 due to depression/SI; this is his first official attempt Tox screen negative for acetaminophen, salicylates, alcohol Patient denies any other ingestions and is A&Ox3 at time of admission Electrolytes WNL EKG revealed NSR at 98 bpm; QTc 413 Repeat EKG planned at q6h to recheck QTc Per poison control, monitored for seizure precautions for at least 24h Continuous telemetry monitoring Patient is cleared from medical standpoint, as per my discussion with psychiatry patient can be discharged home and follow-up outpatient psychiatry (2) Bipolar 2 disorder: Resume aripiprazole (3) Depression: bupropion (4) Anxiety: Hold bupropion Plan Disposition: Admit to PCU telemetry Full code Regular diet, safe tray VTE PPx: Will defer for now Total Time Total Time Spent Total Time Spent (In Minutes): 25 minutes Discharge Plan Discharge Items Patient Disposition: Home - Self-Care Reason For Visit: INTENTIONAL OVERDOSE WITH WELBUTRIN Discharge Diagnosis: intentional meication overdoes Activity: Resume your previous activity Lifting: Gradually increase as tolerated Bathing: No limitations Sexual Activity: When tolerated Driving/Machine Use: No limitations Non-emergency contact: Primary Care Provider Call non-emergency contact if: you have any medication questions and your symptoms worsen Follow-up/Referrals: Cornelia Mcbride CRNP [Primary Care Provider] - Diet: Regular Addtl Attending Provider Instructions: Please follow with psychiatrist as you instructed Pending Studies at Discharge: No Stand-Alone Forms: My [employer], Work/School Release, Smoking Cessation Medications and DC Order Prescriptions: Continued bupropion HCl 300 mg tablet extended release 24 hr 300 mg PO QAM Qty: 90 2RF aripiprazole 5 mg tablet 2.5 mg PO DAILY Qty: 45 2RF Discharge Orders: Discharge Order (Routine); Ordered 07/07/23 Ordered By: Julian Sorto Admission Data Admit Date/Time: 07/05/23 11:11 Attending Provider: Julian Sorto Admit Provider: Juanjose Crabtree Primary Care Provider: Cornelia Mcbride Other Providers: Flip Koo; Donya Louis; María May; Ray Lee Other Interventions: Discharge Summary Assessment (RN) Last Done: 07/07/23 11:11 Coding Level of Care Code 02556 IN/OBS DISCH 30 MIN/LESS Diagnoses Drug overdose, intentional T50.902A Bipolar 2 disorder F31.81 Depression F32.A Anxiety F41.9
== END 2023-07-07 11:11 | disposition home or self-care (01) | DRG 918 ==
LOC: ED 08:13 → EDINP 11:11 → SUATTDRO 11:11 → EDINP 13:44
DX: T14.91XA Suicide attempt, initial encounter; T43.292A Poisoning by other antidepressants, intentional self-harm, initial encounter; F31.81 Bipolar II disorder; U07.0 Vaping-related disorder; F41.9 Anxiety disorder, unspecified; F17.290 Nicotine dependence, other tobacco product, uncomplicated; Y92.89 Other specified places as the place of occurrence of the external cause